=== PATIENT | male | born 1970 | race Caucasian/White ===

== ENCOUNTER 2018-08-08 22:35 | Emergency (ER) | payer BC ==
[2018-08-08] MEDS ORDERED: NS 1,000 ML IV ONE ×2 (23:03→23:12)
--- NOTE | 2018-08-08 23:04 | EDPHY ---
H & P Stated Complaint: cough with fever Time Seen by Provider: 08/08/18 23:04 HPI/ROS: HPI CHIEF COMPLAINT: Cough, fever. HISTORY OF PRESENT ILLNESS: 48-year-old male, otherwise healthy, presents emergency room with a cough that is progressively got worse over the past 2 weeks but worse over the past 24 hr. He states for the past 2 weeks he has had a nagging rather dry cough however last 24-48 hours developed worsening cough. This evening he developed a fever T-max at home 102.7. Chills. No significant chest pain. Some mild shortness of breath. He is en-route from [place] to [place] where he is moving to [place]. Patient denies any pleuritic pain. He does endorse cough with sputum production. Only mild. Past Medical History: Hypertension Past Surgical History: None no recent surgery Social History: Denies daily use of drugs alcohol tobacco. Family History: Noncontributory ROS REVIEW OF SYSTEMS: 10 Systems were reviewed and negative with the exception of the elements mentioned in the history of present illness. Exam Constitutional appears non toxic triage nursing summary reviewed, vital signs reviewed, awake/alert. Eyes normal conjunctivae and sclera, EOMI, PERRLA. HENT posterior pharynx unremarkable, no significant erythema or swelling, normal inspection, atraumatic, moist mucus membranes, no epistaxis, neck supple / no meningismus, no raccoon eyes. Respiratory no significant wheezing, clear to auscultation bilaterally, normal breath sounds, no respiratory distress, no wheezing. Cardiovascular rate normal, regular rhythm, no murmur, no edema, distal pulses normal. Gastrointestinal soft, non-tender, no rebound, no guarding, normal bowel sounds, no distension, no pulsatile mass. Genitourinary no CVA tenderness. Musculoskeletal no midline vertebral tenderness, full range of motion, no calf swelling, no tenderness of extremities, no meningismus, good pulses, neurovascularly intact. Skin pink, warm, & dry, no rash, skin atraumatic. Neurologic awake, alert and oriented x 3, AAOx3, moves all 4 extremities equally, motor intact, sensory intact, CN II-XII intact, normal cerebellar, normal vision, normal speech. Psychiatric normal mood/affect. Heme/Lymph/Immune no lymphadenopathy. Differential Diagnosis: Includes but is not limited to in a particular order viral bronchitis, viral pneumonia, bacterial pneumonia, dehydration, sepsis, bacteremia Medical Decision Making: Plan for this patient IV establishment, blood draw, chest x-ray to rule pneumonia, blood cultures, lactic acid, Tylenol Motrin For fever control. Re-evaluation: EKG interpretation by me on record in [employer] system. Impression time of EKG 1:30 a.m. This is sinus rhythm rate of 80 incomplete right bundle-branch block. But no acute ischemia. No ST elevation no ST depression. Patient's chest x-ray reviewed shows bronchitis but no acute focal pneumonia. Patient's blood work reviewed. Stable. No high white count. Electrolytes appropriate. Negative influenza. 0349: I did go re-evaluate this patient at this time. He is resting comfortably no acute distress. He feels much better after IV fluids Tylenol Motrin. No evidence severe sepsis on exam. Lactic acid is normal. Vital signs are stable. At this time his rate is 72, pulse ox 93%, blood pressure 126/78. Discussed possibilities of observation tonight in the hospital however patient declined he would like to be discharged. I will prescribe him prednisone, albuterol, azithromycin. I do recommend he drinks lots of fluids stays well hydrated Clinically most likely has a viral bronchitis viral process Patient understands stay well-hydrated drink lots of fluids. Tylenol Motrin for fever and pain control. And return precautions discussed with the patient understands return emergency room if develops worsening shortness of breath, fever, vomiting or not feeling well. Patient did specifically ask me if he could travel tomorrow recommend he stays in town and rest and stay well-hydrated return if worse. He has declined hospital admission at this time. Source: Patient - Personal History Current Tetanus/Diphtheria Vaccine: Yes Current Tetanus Diphtheria and Acellular Pertussis (TDAP): Yes - Medical/Surgical History Hx Asthma: No Hx Chronic Respiratory Disease: No Hx Diabetes: No Hx Cardiac Disease: No Hx Renal Disease: No Hx Cirrhosis: No Hx Alcoholism: No Hx HIV/AIDS: No Hx Splenectomy or Spleen Trauma: No Other PMH: hernia disk, GERD, HTN - Social History Smoking Status: Never smoked Constitutional: Initial Vital Signs Temperature (C) 38.0 C 08/08/18 22:38 Heart Rate 124 H 08/08/18 22:38 Respiratory Rate 18 08/08/18 22:38 Blood Pressure 130/96 H 08/08/18 22:38 O2 Sat (%) 93 08/08/18 22:38 O2 Delivery Mode Room Air Allergies/Adverse Reactions: Sulfa (Sulfonamide Antibiotics) Allergy (Verified 08/08/18 22:43) Home Medications: Medication Instructions Recorded Famotidine 08/08/18 Lisinopril 08/08/18 Albuterol [Proventil Inhaler HFA 1 - 2 puffs IH Q4H #1 mdi 08/09/18 (*)] Azithromycin [Zithromax] 250 mg PO DAILY #6 tab 08/09/18 predniSONE 60 mg PO DAILY #15 tab 08/09/18 Medical Decision Making - Diagnostics Imaging Results: Imaging Impressions Chest X-Ray 08/08/18 23:03 Impression: 1. Bronchitis/airways disease. 2. No definite pneumonia. - Data Points Laboratory Results: Laboratory Results 08/08/18 23:18 08/08/18 23:18 08/08/18 08/08/18 08/08/18 23:39 23:18 23:18 WBC 9.94 10^3/uL H 10^3/uL (3.80-9.50) RBC 5.19 10^6/uL 10^6/uL (4.40-6.38) Hgb 16.0 g/dL g/dL (13.7-17.5) Hct 45.0 % % (40.0-51.0) MCV 86.7 fL fL (81.5-99.8) MCH 30.8 pg pg (27.9-34.1) MCHC 35.6 g/dL g/dL (32.4-36.7) RDW 13.0 % % (11.5-15.2) Plt Count 173 10^3/uL 10^3/uL (150-400) MPV 10.3 fL fL (8.7-11.7) Neut % (Auto) 69.6 % % (39.3-74.2) Lymph % (Auto) 17.5 % % (15.0-45.0) [place] % (Auto) 10.5 % % (4.5-13.0) Eos % (Auto) 1.5 % % (0.6-7.6) Baso % (Auto) 0.6 % % (0.3-1.7) Nucleat RBC Rel Count 0.0 % % (0.0-0.2) Absolute Neuts (auto) 6.92 10^3/uL H 10^3/uL (1.70-6.50) Absolute Lymphs (auto) 1.74 10^3/uL 10^3/uL (1.00-3.00) Absolute Monos (auto) 1.04 10^3/uL H 10^3/uL (0.30-0.80) Absolute Eos (auto) 0.15 10^3/uL 10^3/uL (0.03-0.40) Absolute Basos (auto) 0.06 10^3/uL 10^3/uL (0.02-0.10) Absolute Nucleated RBC 0.00 10^3/uL 10^3/uL (0-0.01) Immature Gran % 0.3 % % (0.0-1.1) Immature Gran # 0.03 10^3/uL 10^3/uL (0.00-0.10) VBG Lactic Acid Sodium 139 mEq/L mEq/L (135-145) Potassium 4.1 mEq/L mEq/L (3.3-5.0) Chloride 102 mEq/L mEq/L (97-110) Carbon Dioxide 27 mEq/l mEq/l (22-31) Anion Gap 10 mEq/L mEq/L (6-14) BUN 20 mg/dL mg/dL (7-23) Creatinine 1.1 mg/dL mg/dL (0.7-1.3) Estimated GFR > 60 Glucose 110 mg/dL H mg/dL (70-100) Calcium 10.1 mg/dL mg/dL (8.5-10.4) POC Troponin I 0.01 ng/mL ng/mL (0.00-0.08) NT-Pro-B Natriuret Pep 68 pg/mL pg/mL (0-125) Nasal Influenza A PCR Nasal Influenza B PCR 08/08/18 08/08/18 23:18 23:10 WBC RBC Hgb Hct MCV MCH MCHC RDW Plt Count MPV Neut % (Auto) Lymph % (Auto) [place] % (Auto) Eos % (Auto) Baso % (Auto) Nucleat RBC Rel Count Absolute Neuts (auto) Absolute Lymphs (auto) Absolute Monos (auto) Absolute Eos (auto) Absolute Basos (auto) Absolute Nucleated RBC Immature Gran % Immature Gran # VBG Lactic Acid 1.4 mmol/L mmol/L (0.7-2.1) Sodium Potassium Chloride Carbon Dioxide Anion Gap BUN Creatinine Estimated GFR Glucose Calcium POC Troponin I NT-Pro-B Natriuret Pep Nasal Influenza A PCR NEGATIVE FOR FLU A (NEGATIVE) Nasal Influenza B PCR NEGATIVE FOR FLU B (NEGATIVE) Medications Given: Discontinued Medications Acetaminophen (Tylenol) 1,000 mg PO EDNOW ONE Stop: 08/08/18 23:13 Last Admin: 08/08/18 23:34 Dose: 1,000 mg Sodium Chloride (Ns) 1,000 mls @ 0 mls/hr IV ONCE ONE; Wide Open PRN Reason: Protocol Stop: 08/08/18 23:04 Last Admin: 08/08/18 23:16 Dose: 1,000 mls Sodium Chloride (Ns) 1,000 mls @ 0 mls/hr IV ONCE ONE PRN Reason: Wide Open Stop: 08/08/18 23:13 Last Admin: 08/08/18 23:24 Dose: 1,000 mls Ibuprofen (Motrin) 800 mg PO EDNOW ONE Stop: 08/08/18 23:13 Last Admin: 08/08/18 23:34 Dose: 800 mg Point of Care Test Results: Chemistry 08/08/18 23:39 POC Troponin I 0.01 ng/mL ng/mL (0.00-0.08) Departure - Departure Disposition: Home, Routine, Self-Care Clinical Impression: Viral syndrome Condition: Good Instructions: Viral Syndrome (ED) Additional Instructions: 1. Drink lots of fluids stay well-hydrated 2. Return emergency room if you have worsening symptoms 3. Antibiotics as prescribed 4. Albuterol 2 puffs every 4 hr as needed 5. Take Tylenol and/or Motrin every 6-8 hours for fever pain control 6. Return if doing worse. Referrals: JAIMEE GOLDBERG [Other] - As per Instructions Prescriptions: Albuterol [Proventil Inhaler HFA (*)] 1 - 2 puffs IH Q4H #1 mdi Azithromycin [Zithromax] 250 mg PO DAILY #6 tab predniSONE 60 mg PO DAILY #15 tab
[2018-08-08] MEDS ORDERED: IBUPROFEN 800 MG TAB PO ONE (23:12)
[2018-08-08] MEDS ORDERED: ACETAMINOPHEN 500 MG TAB PO ONE (23:12)
[2018-08-08 23:30] LABS: PLATELET COUNT 173 10^3/uL (150-400)
[2018-08-09] MEDS ORDERED: ALBUTEROL INH PREPACK MDI TAKEHOME ONE (03:46)
[2018-08-09] MEDS ORDERED: predniSONE 20 MG TAB PO ONE (03:46)
[2018-08-09] MEDS ORDERED: AZITHROMYCIN 250 MG TAB PO ONE (03:46)
[2018-08-09 04:16] VITALS: BP 118/64
== END 2018-08-09 04:07 | disposition home or self-care (01) ==
DX: B34.9 Viral infection, unspecified (principal); E86.9 Volume depletion, unspecified
CPT/HCPCS: 84484-PO; J7512